=== PATIENT | male | born 1985 | race Caucasian/White ===

== ENCOUNTER 2018-12-14 09:34 | Emergency (ER) | payer MEDICAID ==
[~2018-12-14] VITALS: Ht 185.4 cm; Wt 91.3 kg
--- NOTE | 2018-12-14 10:13 | NUR ---
PT TO ED FOR INTERMITTENT DIZZINESS, ACOSTA, "POP"/RINGING IN EARS X6 OR MORE MONTHS. PT CONNECTED TO ALL MONITORS. VSS. DR. BARCENAS TO BS FOR ASSESSMENT. AWAITING ORDRS.
[2018-12-14] MEDS ORDERED: THIAMINE 100MG TABLET PO ONE (10:30)
[2018-12-14] MEDS ORDERED: MECLIZINE CHEWABLE 25 MG TAB PO ONE (10:30)
[2018-12-14 10:35] LABS: BASOPHILS # (AUTO) 0.03 x10^3/uL (0-0.1); BASOPHILS % (AUTO) 1 % (0-1); EOSINOPHILS # (AUTO) 0.18 x10^3/uL (0-0.4); EOSINOPHILS % (AUTO) 3 % (1-7); LYMPHOCYTES # (AUTO) 1.92 x10^3/uL (1-3.4); LYMPHOCYTES % (AUTO) 31 % (22-44); MD NO; MEAN CORPUSCULAR HEMOGLOBIN 30.7 pg (27.5-34.5); MEAN CORPUSCULAR HGB CONC 34.3 g/dL (33.2-36.2); MEAN CORPUSCULAR VOLUME 89.5 fL (81-97); MEAN PLATELET VOLUME 8.1 fL (7.4-10.4); MONOCYTES # (AUTO) 0.52 x10^3/uL (0.2-0.8); MONOCYTES % (AUTO) 9 % (2-9); NEUTROPHILS # (AUTO) 3.49 x10^3/uL (1.8-6.8); NEUTROPHILS % (AUTO) 57 % (42-75); PLATELET COUNT 212 x10^3/uL (130-400); RED BLOOD COUNT 5.62 x10^6/uL (4.38-5.82); RED CELL DISTRIBUTION WIDTH 12.5 % (9.4-14.8)
--- NOTE | 2018-12-14 10:43 | NUR ---
PT RESTING IN ROOM. VSS. PT MADE AWARE OF DELAY WITH MRI. PT AGREEABLE TO WAIT TIME. PT REFUSING MEDICATIONS AT THIS TIME. LABS DRAWN. AWATIING MRI AND LAB RESULTS.
[2018-12-14 10:45] LABS: ALBUMIN 4.2 g/dL (3.4-5.0); ANION GAP 3 mmol/L (5-15); CALCIUM 9.3 mg/dL (8.5-10.1); CHLORIDE 112 mmol/L (98-107); CREATININE 0.77 mg/dL (0.7-1.3); SALICYLATE LEVEL 4.3 mg/dL (2.8-20.0)
--- NOTE | 2018-12-14 11:40 | NUR ---
pt resting in room. vss. no needs expressed. mri complete. all results back at this time. chart up for recheck.
[2018-12-14 12:47] VITALS: BP 132/76
--- NOTE | 2018-12-14 12:48 | NUR ---
DR. BARCENAS TO BS TO UPDATE ON POC AND RESULTS. VSS. AWAITING DISPO.
== END 2018-12-14 13:41 | disposition home or self-care (01) ==
LOC: ED 10:48
DX: R42 Dizziness and giddiness (principal)
CPT/HCPCS: 36415; 70551; 80048; 80307; 82040; 85025; 93005; 99284